=== PATIENT | male | born 1960 | race Hispanic/Latino ===

== ENCOUNTER 2016-11-02 14:09 | Emergency (ER) | payer SELFPAY ==
[2016-11-02 16:00] LABS: Anion Gap 18 mmol/L; BUN/Creatinine Ratio 11.42; Blood Urea Nitrogen 8 mg/dL (9-20); Calcium 8.3 mg/dL (8.4-10.2); Carbon Dioxide 27 mmol/L (22-30); Glucose 99 mg/dL (75-100); Potassium 3.6 mmol/L (3.6-5.0); Sodium 142 mmol/L (137-145)
[2016-11-02 16:28] LABS: Hematocrit 36.9 % (35.5-45.6); Hemoglobin 11.8 gm/dl (11.8-15.2); Mean Corpuscular HGB Conc 32 % (32-34); Mean Corpuscular Hemoglobin 30 pg (28-32); Mean Corpuscular Volume 94 fl (84-94); Platelet Count 348 K/mm3 (140-440); Red Blood Count 3.91 M/mm3 (3.65-5.03); Red Cell Distribution Width 14.2 % (13.2-15.2); White Blood Count 11.6 K/mm3 (4.5-11.0)
[2016-11-02 16:48] VITALS: BP 115/77
[2016-11-02] MEDS ORDERED: NACL 0.9% 1000 ML 1,000 ML IV ONE (17:04)
[2016-11-02 17:12] LABS: Urine Drugs of Abuse Note Disclamer
--- NOTE | 2016-11-02 17:16 | Emergency Department Report ---
HPI - General Chief Complaint: Medical Clearance Time Seen by Provider: 11/02/16 16:27 - HPI HPI: The patient is a 56-year-old male who presents for evaluation of lightheadedness and chest pain. The patient reports lightheadedness for the past one week, moderate to severe, exacerbated with standing and physical activity, improved with rest and lying flat. He states that his chest pain is right-sided in location, aching in quality, mild to moderate in severity, exacerbated with coughing, and present on and off for the past 2 weeks. He has also experienced a mild nonproductive cough for the past 2 weeks as well. The patient denies fever, dyspnea, syncope, hemoptysis, unilateral leg swelling, recent immobilization, history of DVT or PE, recent cancer. ED Past Medical Hx - Past Medical History Previous Medical History?: Yes Hx Psychiatric Treatment: Yes (schizophrenia) - Surgical History Past Surgical History?: No - Social History Smoking Status: Former Smoker Substance Use Type: None - Medications Home Medications: Home Medications Medication Instructions Recorded Confirmed Last Taken Type Benzonatate [Tessalon Perles] 100 mg PO Q8HR #14 capsule 11/02/16 Unknown Rx Ibuprofen [Motrin] 800 mg PO Q8HR PRN #14 tablet 11/02/16 Unknown Rx ED Review of Systems ROS: Stated complaint: DEHYDRATION Other details as noted in HPI Constitutional: denies: fever; reports lightheadedness ENT: denies: throat or neck pain Respiratory: denies: cough, shortness of breath Cardiovascular: denies: chest pain Endocrine: denies unexplained weight loss or gain Gastrointestinal: denies: abdominal pain, nausea Genitourinary: denies: dysuria Musculoskeletal: denies: leg swelling Skin: denies: rash Neurological: denies: headache Hematological/Lymphatic: denies: easy bleeding or easy bruising Psych: denies sadness or hopelessness Physical Exam - Physical Exam Vital Signs: Vital Signs 11/02/16 11/02/16 11/02/16 14:51 14:52 14:53 Temperature Pulse Rate 86 83 83 Respiratory 19 24 17 Rate Blood Pressure 106/73 106/73 Blood Pressure [Left] O2 Sat by Pulse 96 96 96 Oximetry 11/02/16 11/02/16 15:02 16:47 Temperature 99 F Pulse Rate 86 Respiratory 16 16 Rate Blood Pressure Blood Pressure 115/77 [Left] O2 Sat by Pulse 99 93 Oximetry Physical Exam: General: well-nourished, well-developed, no acute distress Head: Normocephalic, atraumatic Eyes: normal sclera ENT: Mucous membranes are pale and dry Neck: No neck stiffness, no cervical adenopathy Respiratory: Breath sounds equal bilaterally, no wheezing, rales, or rhonchi Cardio: S1 and S2 present, no murmurs, rubs, gallops, capillary refill is delayed Abdomen: Normoactive bowel sounds, soft abdomen, no rigidity, no guarding or rebound tenderness Musc: No pitting edema Skin: No rash Neuro: no facial drooping, normal speech Psych: Normal affect ED Course Vital Signs 11/02/16 11/02/16 11/02/16 14:51 14:52 14:53 Temperature Pulse Rate 86 83 83 Respiratory 19 24 17 Rate Blood Pressure 106/73 106/73 Blood Pressure [Left] O2 Sat by Pulse 96 96 96 Oximetry 11/02/16 11/02/16 15:02 16:47 Temperature 99 F Pulse Rate 86 Respiratory 16 16 Rate Blood Pressure Blood Pressure 115/77 [Left] O2 Sat by Pulse 99 93 Oximetry ED Medical Decision Making - Lab Data Result diagrams: 11/02/16 15:22 11/02/16 15:22 - Medical Decision Making The patient was seen and examined by myself. The patient is placed on a court recording monitor and continuous pulse ox. On initial evaluation, the patient was found to be in no distress. EKG was negative for findings suggestive of acute cardiac infarct. The patient is given 1 L normal saline fluid bolus for treatment of dehydration, and IV Toradol for his pain. Labs and imaging are obtained. Chest x-ray is negative for pneumothorax, focal consolidation, pulmonary vascular congestion, pleural effusion, or other obvious acute cardiopulmonary disease process. Lab results were non-concerning including levels of troponin, WBC, hemoglobin, hematocrit, electrolytes, renal function. The patient was reevaluated and reported that their symptoms were markedly improved. As the patient has a TRES risk score less than 2, and a well's score less than 2, the patient is at low risk of ACS or pulmonary emboli etiology of their symptoms. The patient is stable for discharge with outpatient follow-up. The patient is given follow-up and return instructions. The patient expressed understanding and agreed with the plan. The patient is discharged in stable condition. Critical care attestation.: If time is entered above; I have spent that time in minutes in the direct care of this critically ill patient, excluding procedure time. ED Disposition Clinical Impression: Atypical chest pain, Orthostatic lightheadedness, Dehydration, mild Disposition: DISCHARGED TO HOME OR SELFCARE Is pt being admited?: No Does the pt Need Aspirin: No Condition: Stable Instructions: Lightheadedness (ED), Dehydration (ED), Costochondritis (ED) Referrals: PRIMARY CARE, [Primary Care Provider] - 3-5 Days Time of Disposition: 18:51
[2016-11-02] MEDS ORDERED: TORADOL IV ONE (17:20)
[2016-11-02 17:25] LABS: Basophils % (Manual) 0 % (0.0-1.8); Blastocytes % (Manual) 0 %; Eosinophils % (Manual) 0 % (0.0-4.3)
[2016-11-02 17:26] LABS: Diff Status Complete; RBC Morphology Normal
--- NOTE | 2016-11-03 08:52 | XRay Report ---
AP CHEST : 11/02/16 17:04:00 CLINICAL: Chest pain. COMPARISON:None FINDINGS: Extensive patchy opacities in the right lung base with possible extension to the right upper lobe. There is wide loss in the right lung with tenting of the diaphragm and more linear streaky opacities near the diaphragm. The left lung is normally expanded and clear. Normal heart and pulmonary vessels. The bones and soft tissues are unremarkable. IMPRESSION: Right basal pneumonia.
== END 2016-11-02 22:00 | disposition home or self-care (01) ==
LOC: ED 14:09
DX: R07.89 Other chest pain (principal); E86.0 Dehydration; R42 Dizziness and giddiness; Z87.891 Personal history of nicotine dependence
CPT/HCPCS: 36415; 71010; 80048; 80307; 85007; 85025; 93005; 93010; 96361; 96374; 99284; G0480; J1885; J7030; 80320